=== PATIENT | male | born 1980 | race Caucasian/White ===

== ENCOUNTER 2020-05-31 09:34 | Emergency (ER) | payer OTHER ==
[2020-05-31] MEDS ORDERED: Insulin Regular 300 UNITS/3 ML VIAL ONE (10:01)
[2020-05-31] MEDS ORDERED: Ondansetron PF 4 MG/2 ML Vial ONE (10:04)
[2020-05-31 10:25] LABS: ALT (SGPT) 21 U/L (8-55); AST (SGOT) 10 U/L (5-34); Albumin 4.6 g/dL (3.5-5.0); Alkaline Phosphatase 125 U/L (40-110); Anion Gap 34 mmol/L (10-20); BUN (Urea Nitrogen) 36 mg/dL (8.9-20.6); Bilirubin, Total 0.7 mg/dL (0.2-1.2); Calc. Creatinine Clearance 0 mL/min (70-130); Calcium 9.9 mg/dL (7.8-10.44); Carbon Dioxide 13 mmol/L (22-29); Chloride 100 mmol/L (98-107); Globulin 3.8 g/dL (2.4-3.5); Glucose 528 mg/dL (70-105); Potassium 4.7 mmol/L (3.5-5.1); Protein, Total 8.4 g/dL (6.0-8.3); Sodium 142 mmol/L (136-145)
[2020-05-31] MEDS ORDERED: Famotidine In NaCl 20 mg/50 ml Premix Bag ONE (10:25)
[2020-05-31 10:31] LABS: Band 6 % (5-11); Eosinophils 1 % (0-10); Hemoglobin 19.1 g/dL (14.0-18.0); Lymphocytes 7 % (21-51); MDiff Complete? YES; Mean Corpuscular HGB CONC 31.9 g/dL (32.0-36.0); Mean Corpuscular Hemoglobin 28.8 pg (27.0-31.0); Mean Corpuscular Volume 90.2 fL (78.0-98.0); Mean Platelet Volume 8.1 fL (7.4-10.4); Monocytes 2 % (0-10); Neutrophil 84 % (42-75); Platelet Count 354 thou/uL (130-400); RBC Distribution Width 11.8 % (11.5-14.5); Red Blood Cell (RBC) Count 6.64 mill/uL (4.70-6.10); White Blood Cell (WBC) Count 25.7 thou/uL (4.8-10.8)
[2020-05-31] MEDS ORDERED: Milk Of Magnesia 30 ML UDCUP ONE (10:39)
[2020-05-31] MEDS ORDERED: Lidocaine Viscous Sol 2% 15 ml UD Cup ONE (10:39)
[2020-05-31 11:03] LABS: Bicarbonate (HCO3v) 16.6 mmol/L (22.0-28.0)
[2020-05-31 11:04] LABS: Base Excess-Venous -9.2 mmol/L (-2.0 to 3.0); Calcium, Ionized 1.08 mmol/L (1.15-1.33); Chloride 108 mmol/L (98-107); Hemoglobin - Calc 20.4 g/dL (14.0-18.0); Potassium 4.6 mmol/L (3.5-5.1); Sodium 137 mmol/L (138-145); T. Carbon Dioxide 17.7 mmol/L (22.0-28.0); vO2 Saturation-calc 97.3 % (60.0-85.0)
[2020-05-31] MEDS ORDERED: INSULIN REGULAR IN 0.9 % NACL 100 UNIT/100 ML BAG ONE (11:11)
[2020-05-31 11:51] LABS: Bilirubin Moderate (Negative); Blood, Urine Negative (Negative); Clarity Clear (Clear); Glucose, Urine (Dipstick) 500 mg/dL (Negative); Ketone, Urine > or equal to 80 mg/dL (Negative); Leukocyte Negative (Negative); Nitrite Negative (Negative); Protein, Urine (Dipstick) Negative (Neg-Trace); Urobilinogen 0.2 mg/dL (Less than 2); pH, Urine 5.5 (5.0-9.0)
[2020-05-31] MEDS ORDERED: Acetaminophen 500 MG TAB ONE (13:14)
== END 2020-05-31 13:30 | disposition short-term general hospital (02) ==
LOC: BURERS 09:34
DX: E10.10 Type 1 diabetes mellitus with ketoacidosis without coma (principal)
CPT/HCPCS: 36415; 36416; 80053; 81003; 82330; 82803; 85025; 93005; 96365; 96366; 96367; 96375; 96376; J1815; J2405